=== PATIENT | female | born 1965 | race Caucasian/White ===

== ENCOUNTER 2018-03-21 08:22 | Day surgery (SDC) | payer BC ==
[2018-03-21] MEDS ORDERED: MIDAZOLAM 1 MG/ML 2 ML INJ ×2 (12:45)
[2018-03-21] MEDS ORDERED: FENTAnyl 50 MCG/ML VIAL (12:45)
== END 2018-03-21 12:31 | disposition home or self-care (01) ==
LOC: GIL 08:22
DX: Z12.11 Encounter for screening for malignant neoplasm of colon (principal); K64.8 Other hemorrhoids; K62.1 Rectal polyp
CPT/HCPCS: 45380; 84703; 88305